=== PATIENT | female | born 1985 ===

== ENCOUNTER 2021-09-04 18:38 | Outpatient (REF) | payer BC, SELFPAY ==
[2021-09-04 16:02] LABS: Abs Immature Grans 0.04 10^3/uL (0.0-0.06); Absolute Basophil Count 0.05 10^3/uL (0.0-0.2); Absolute Eosinophil Count 0.38 10^3/uL (0.0-0.7); Absolute Lymphocyte Count 2.72 10^3/uL (1.2-3.4); Absolute Monocyte Count 0.79 10^3/uL (0.1-0.8); Absolute Neutrophil Count 7.97 10^3/uL (1.2-6.7); Basophils % 0.4; Eosinophils % 3.2; HCT 40.6 % (36.0-46.0); HGB 13.5 g/dL (11.2-15.7); Immature Grans % 0.3; Lymphocytes % 22.8; MCH 28.6 pg (27.0-33.0); MCHC 33.3 % (32.0-36.0); MCV 86 fL (80-95); MPV 10.2 fL (8.0-11.0); Monocytes % 6.6; Neutrophils % 66.7; Platelet Count 347 10^3/uL (130-400); RBC 4.72 10^6/uL (3.93-5.22); RDW-SD 40.8 fL; WBC 11.95 10^3/uL (4.4-10.8)
[2021-09-04 17:06] LABS: C & S Indicated? C&S Done As Ordered; RBC >50 HPF (0-2)
== END 2021-09-04 18:39 | disposition home or self-care (01) ==
LOC: LBN 18:38
PROVIDERS: Visit Provider Physician Assistant Medical
DX: R30.0 Dysuria (principal)
CPT/HCPCS: 80048; 87077; 81015; 85025; 87086; 87186